=== PATIENT | male | born 1980 | race Two or more races ===

== ENCOUNTER 2020-08-15 10:59 | Emergency (ER) | payer OTHER ==
[~2020-08-15] VITALS: Ht 167.6 cm; Wt 113.4 kg
[2020-08-15 11:14] VITALS: BP 185/99
[2020-08-15 11:40] LABS: Basophils # (auto) 0.2 10 ^3/uL (0-0.2); Basophils % (auto) 1.3 % (0.0-2.0); Eosinophils # (auto) 0.2 10 ^3/uL (0-0.8); Eosinophils % (auto) 1.3 % (0.0-7.0); Hemoglobin 14.4 g/dL (13.5-17.5); Lymphocytes # (auto) 4.1 10 ^3/uL (0.4-5.4); Lymphocytes % (auto) 30.5 % (10.0-50.0); Mean Corpuscular Hemoglobin 29.3 pg (28.0-32.0); Mean Corpuscular Hgb Conc. 33.4 g/dL (32.0-36.0); Mean Corpuscular Volume 87.8 fL (80.0-100.0); Monocytes # (auto) 0.6 10 ^3/uL (0-1.3); Monocytes % (auto) 4.2 % (0.0-12.0); Neutrophils # (auto) 8.5 10 ^3/uL (1.6-8.6); Neutrophils % (auto) 62.7 % (37.0-80.0); Red Cell Distribution Width 13.7 % (11.8-14.3); White Blood Cell 13.5 10^3/uL (4.4-10.8)
[2020-08-15 12:12] LABS: BUN/Creatinine Ratio 15.8; Bilirubin, Total 0.2 mg/dL (0.2-1.0); Total Protein 8.7 g/dL (6.4-8.2)
[2020-08-15] MEDS ORDERED: methylPREDNISolone SOD SUCC 125 MG/2 ML VL IV ONE (12:30)
[2020-08-15] MEDS ORDERED: ACYCLOVIR 400 MG TAB PO ONE (12:30)
== END 2020-08-15 13:22 | disposition home or self-care (01) ==
LOC: ER 10:59
DX: G51.0 Bell's palsy (principal)
CPT/HCPCS: 36415; 70450; 70487; 80053; 83605; 85025; 87040; 96374; 99285; J2930

== ENCOUNTER 2024-05-20 13:23 | Inpatient (IN) | payer OTHER ==
[~2024-05-20] VITALS: Ht 165.1 cm; Wt 131.0 kg
--- NOTE | 2024-05-20 14:18 | ED.PDOC ---
History of Present Illness HPI Comments 44Y M with PMHx DM presents to ED for chief complaint hypoglycemia with body aches, weakness, and nausea. Pt is currently taking Glipizide for DM management. BS upon ED arrival is 56. Pt states he ate breakfast. Chief Complaint: Hypoglycemia Time Seen by MD: 13:55 Primary Care Provider: PAIGE Sullivan Notes: Nurses Notes, Medications, Allergies Allergies: Coded Allergies: NO KNOWN ALLERGIES (Unverified , 08/15/20) Information Source: Patient Mode of Arrival: Ambulatory Severity: Mild Timing: Hours Duration: Since onset Past Medical History PAST MEDICAL HISTORY: DM Surgical History: Denies all surgeries Family History Family History: Unknown Social History Smoker: Non-Smoker Alcohol: Denies ETOH Use Drugs: Denies Drug Use Lives In: Home Constitutional: reports: weakness, others (body aches); denies: chills, diaphoresis, fatigue, fever, malaise, sweats EENTM: denies: blurred vision, double vision, ear bleeding, ear discharge, ear drainage, ear pain, ear ringing, eye pain, eye redness, hearing loss, mouth pain, mouth swelling, nasal discharge, nose bleeding, nose congestion, nose pain, photophobia, tearing, throat pain, throat swelling, voice changes, others Respiratory: denies: cough, hemoptysis, orthopnea, SOB at rest, shortness of breath, SOB with excertion, stridor, wheezing, others Cardiovascular: denies: chest pain, dizzy spells, diaphoresis, Dyspnea on exertion, edema, irregular heart beat, left arm pain, lightheadedness, palpitations, PND, syncope, others Gastrointestinal: reports: nausea; denies: abdomen distended, abdominal pain, blood streaked bowels, constipated, diarrhea, dysphagia, difficulty swallowing, hematemesis, melena, poor appetite, poor fluid intake, rectal bleeding, rectal pain, vomiting, others Genitourinary: denies: burning, dysuria, flank pain, frequency, hematuria, incontinence, penile discharge, penile sore, pain, testicle pain, testicle swelling, urgency, others Neurological: denies: dizziness, fainting, headache, left sided numbness, left sided weakness, numbness, paresthesia, pre-existing deficit, right sided numbness, right sided weakness, seizure, speech problems, tingling, tremors, weakness, others Musculoskeletal: denies: back pain, gout, joint pain, joint swelling, muscle pain, muscle stiffness, neck pain, others Integumetry: denies: bruises, change in color, change in hair/nails, dryness, laceration, lesions, lumps, rash, wounds, others Allergic/Immunocompromised: denies: Difficulty Healing, Frequent Infections, Hives, Itching, others Hematologic/Lymphatic: denies: anemia, blood clots, easy bleeding, easy bruising, swollen glands, others Endocrine: reports: others (hypoglycemia); denies: excessive hunger, excessive sweating, excessive thirst, excessive urination, flushing, intolerance to cold, intolerance to heat, unexplained weight gain, unexplained weight loss Psychiatric: denies: anxiety, bipolar disorder, depression, hopeless, panic disorder, schizophrenia, sleepless, suicidal, others All Other Systems: Reviewed and Negative Physical Exam General Appearance: No Apparent Distress, Normal HEENT: Normal ENT Inspection, Pharynx Normal, TMs Normal Neck: Full Range of Motion, Non-Tender, Normal, Normal Inspection Respiratory: Chest Non-Tender, Lungs Clear, No Accessory Muscle Use, No Respiratory Distress, Normal Breath Sounds Cardiovascular: No Edema, No JVD, No Murmur, No Gallop, Normal Peripheral Pulses, Regular Rate/Rhythm Breast Exam: Deferred Gastrointestinal: No Organomegaly, Non Tender, No Pulsatile Mass, Normal Bowel Sounds, Soft Genitalia: Deferred Pelvic: Deferred Rectal: Deferred Extremities: No calf tenderness, Normal capillary refill, Normal inspection, Normal range of motion, Non-tender, No pedal edema Musculoskeletal : Apperance: Normal Neurologic: Alert, 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 Was a procedure done?: No Differential Dx Considerations may include: Hyperglycemia, sepsis, viral syndrome, electrolyte and are since our X-Ray, Labs, Meds, VS Vital Signs Date Time Temp Pulse Resp B/P (MAP) Pulse Ox O2 Delivery O2 Flow Rate FiO2 05/20/24 14:03 97.0 91 18 116/59 (78) 97 Lab Test 05/20/24 14:50 05/20/24 14:17 05/20/24 13:55 05/20/24 13:54 Range/Units POC Glucose 101 63 L 57 L 70-106 mg/dl White Blood Count 27.7 H 4.4-10.8 10^3/uL Red Blood Count 4.18 L 4.5-5.90 10^6/uL Hemoglobin 11.9 L 13.5-17.5 g/dL Hematocrit 37.1 L 41.0-53.0 % Mean Corpuscular Volume 88.8 80.0-100.0 fL Mean Corpuscular Hemoglobin 28.5 28.0-32.0 pg Mean Corpuscular Hemoglobin Concent 32.1 32.0-36.0 g/dL Red Cell Distribution Width 15.0 H 11.8-14.3 % Platelet Count 258 140-450 10^3/uL Mean Platelet Volume 9.6 6.9-10.8 fL Neutrophils (%) (Auto) 82.8 H 37.0-80.0 % Lymphocytes (%) (Auto) 9.6 L 10.0-50.0 % Monocytes (%) (Auto) 7.2 0.0-12.0 % Eosinophils (%) (Auto) 0.1 0.0-7.0 % Basophils (%) (Auto) 0.3 0.0-2.0 % Neutrophils # (Auto) 22.9 H 1.6-8.6 10 ^3/uL Lymphocytes # (Auto) 2.7 0.4-5.4 10 ^3/uL Monocytes # (Auto) 2.0 H 0-1.3 10 ^3/uL Eosinophils # (Auto) 0 0-0.8 10 ^3/uL Basophils # (Auto) 0.1 0-0.2 10 ^3/uL Nucleated Red Blood Cells 0.0 % Sodium Level 131 L 136-145 mmol/L Potassium Level 3.5 3.5-5.1 mmol/L Chloride Level 97 L 98-107 mmol/L Carbon Dioxide Level 27 20-31 mmol/L Anion Gap 7 5-15 Blood Urea Nitrogen 30 H 9-23 mg/dL Creatinine 1.65 H 0.700-1.30 mg/dL Glomerular Filtration Rate Calc 52 >90 mL/min BUN/Creatinine Ratio 18.2 10.0-20.0 Serum Glucose 64 L 74-106 mg/dL Calcium Level 8.7 8.7-10.4 mg/dL Test 05/20/24 13:45 05/20/24 13:42 Range/Units POC Glucose 48 *L 56 L 70-106 mg/dl Time of 1ST Reevaluation: 14:25 Reevaluation 1ST: Unchanged Patient Education/Counseling: Diagnosis, Treatment Family Education/Counseling: No Family Present Departure 1 Departure Time of Disposition: 17:03 ([place] Authorization [id number] with concern for sepsis, viral syndrome, electrolyte abnormality, metabolic disarray) Impression: Primary Impression: Hypoglycemia Additional Impression: Weakness Disposition: 09 ADMITTED INPATIENT Admit to: Med Surg Condition: Serious Critical Care Note Critical Care Time?: Yes Critical care comment: Recurrent hypoglycemia Authorized and Performed by: Mary Shaw MD Total critical care time: Approximately 34 minutes Due to a high probability of clinically significant, life threatening deterioration, the patient required my highest level of preparedness to intervene emergently and I personally spent this critical care time directly and personally managing the patient. This critical care time included obtaining a h istory; examining the patient; pulse oximetry; ordering and review of studies; arranging urgent treatment with development of a management plan; evaluation of patient's response to treatment; frequent reassessment; and, discussions with other providers. This critical care time was performed to assess and manage the high probability of imminent, life-threatening deterioration that could result in multi-organ failure. It was exclusive of separately billable procedures and treating other patients and teaching time. Please see my other sections and the rest of the note for further information on patient assessment and treatment. Stability Stability form required: No Heart Score Heart Score: Heart Score Response (Comments) Value History N/A 0 EKG N/A 0 Age N/A 0 Risk Factors N/A 0 Troponin N/A 0 Total 0 I personally scribed for MARY SHAW MD ([email or web address]) on 05/20/24 at 14:18. Electronically submitted by Elisabeth Junior ([email or web address]). MARY SHAW MD May 20, 2024 14:18
[2024-05-20 14:44] LABS: Basophils # (auto) 0.1 10 ^3/uL (0-0.2); Basophils % (auto) 0.3 % (0.0-2.0); Eosinophils # (auto) 0 10 ^3/uL (0-0.8); Eosinophils % (auto) 0.1 % (0.0-7.0); Hematocrit 37.1 % (41.0-53.0); Hemoglobin 11.9 g/dL (13.5-17.5); Lymphocytes # (auto) 2.7 10 ^3/uL (0.4-5.4); Lymphocytes % (auto) 9.6 % (10.0-50.0); Mean Corpuscular Hemoglobin 28.5 pg (28.0-32.0); Mean Corpuscular Hgb Conc. 32.1 g/dL (32.0-36.0); Mean Corpuscular Volume 88.8 fL (80.0-100.0); Monocytes % (auto) 7.2 % (0.0-12.0); Neutrophils # (auto) 22.9 10 ^3/uL (1.6-8.6); Neutrophils % (auto) 82.8 % (37.0-80.0); Platelet Count (auto) 258 10^3/uL (140-450); Red Blood Cells 4.18 10^6/uL (4.5-5.90); White Blood Cell 27.7 10^3/uL (4.4-10.8)
[2024-05-20 14:54] LABS: Anion Gap 7 (5-15); Calcium 8.7 mg/dL (8.7-10.4); Carbon Dioxide 27 mmol/L (20-31)
[2024-05-20 14:59] LABS: BUN/Creatinine Ratio 18.2 (10.0-20.0)
[2024-05-20 15:00] LABS: Blood Urea Nitrogen 30 mg/dL (9-23); Chloride 97 mmol/L (98-107); Glucose 64 mg/dL (74-106); Potassium 3.5 mmol/L (3.5-5.1); Sodium 131 mmol/L (136-145)
[2024-05-20] MEDS: ONDANSETRON HCL 4 MG/2 ML VIAL IV ONE (16:00)
[2024-05-20] MEDS ORDERED: CEFEPIME 2GM/50ML NS 50 ML IV ONE (16:00)
[2024-05-20] MEDS: D5W 5% 1,000 ML IV ONE (17:00)
[2024-05-20 17:20] VITALS: O2SAT 98
[2024-05-20 17:23] LABS: Albumin 3.6 g/dL (3.2-4.8); Anion Gap 9 (5-15); BUN/Creatinine Ratio 17.7 (10.0-20.0); Bilirubin, Total 1.1 mg/dL (0.2-1.0); Carbon Dioxide 26 mmol/L (20-31); Potassium 3.9 mmol/L (3.5-5.1); Total Protein 7.1 g/dL (5.7-8.2)
[2024-05-20 17:24] LABS: Alanine Aminotransferase 99 U/L (7-40); Alkaline Phosphatase 215 U/L (46-116); Aspartate Aminotransferase 86 U/L (13-40); Blood Urea Nitrogen 33 mg/dL (9-23); Calcium 8.6 mg/dL (8.7-10.4); Chloride 97 mmol/L (98-107); Glucose 73 mg/dL (74-106); Sodium 132 mmol/L (136-145)
[2024-05-20] MEDS: SODIUM CHLORIDE 0.9% 1,000 ML IV ONE (17:27)
[2024-05-20] MEDS ORDERED: MORPHINE SULFATE INJ 2 MG/ml SYRG IV PRN ×2 (17:45)
[2024-05-20] MEDS ORDERED: HYDROcodone-ACET 5/325MG TAB PO PRN (17:45)
[2024-05-20] MEDS ORDERED: ONDANSETRON HCL 4 MG/2 ML VIAL IV PRN (17:45)
[2024-05-20] MEDS ORDERED: NITROGLYCERIN 0.4 MG SL TAB SL PRN (17:45)
[2024-05-20] MEDS: AZITHROMYCIN 500MG/ 250ML 250 ML IV ONE (17:45)
[2024-05-20] MEDS ORDERED: DEXTROSE (50%) 50ML SYRG IV PRN (17:45)
[2024-05-20] MEDS ORDERED: LORazepam 0.5 MG TAB PO PRN (17:45)
[2024-05-20] MEDS ORDERED: cefTRIAXone 2GM/50ML D5W 50 ML IV SCH (17:45)
--- NOTE | 2024-05-20 17:47 | DVHHP2 ---
History of Present Illness Reason for Visit: GENERALIZED WEAKNESS History of Present Illness Patient is a 44 year-old M with a PMHx of DM2, HTN, and Obesity who presented to the hospital today complaining of generalized weakness, fevers, chills, for the past 4 days which has been worsening. Today patients who is an RN noticed patients blood sugars have been in the 50's and multiple juices boxes were given and patient become even more lethargic and nauseas. At that time patient presented to the ED for further workup and care. In the ED patient seemed lethargic, unable to complete full sentences. Smoke: No Review of Systems Constitutional: Yes: Fever, Chills, Sweats, Weakness, Malaise Eyes: No: Pain, Vision change, Conjunctivae inflammation, Eyelid inflammation, Other, Redness ENT: No: Ear pain, Ear discharge, Nose pain, Nose discharge, Nose congestion, Mouth pain, Mouth swelling, Throat pain, Throat swelling, Other Respiratory: Shortness of breath, SOB with excertion Cardiovascular: No: Chest Pain, Palpitations, Orthopnea, Paroxysmal Noc. Dyspnea, Edema, Lt Headedness, Other Gastrointestinal: No: Nausea, Vomiting, Abdominal Pain, Diarrhea, Constipation, Melena, Hematochezia, Other Genitourinary: No Dysuria, No Frequency, No Incontinence, No Hematuria, No Retention, No Other Musculoskeletal: No: other, neck pain, shoulder pain, arm pain, back pain, hand pain, leg pain, foot pain Skin: No: Rash, Lesions, Jaundice, Bruising, Other Neurological: Weakness; No: Numbness, Incoordination, Change in speech, Confusion, Seizures, Other Allergies: Coded Allergies: NO KNOWN ALLERGIES (Unverified , 08/15/20) Medications Current Medications Medications Dose Ordered Sig/[place] Route Start Time Stop Time Status Last Admin Dose Admin Sodium Chloride 1,000 ml @ 125 mls/hr Q8H IV 05/20/24 17:45 UNV Lorazepam 0.5 mg Q6HP PRN PO 05/20/24 17:45 UNV Acetaminophen/ Hydrocodone Bitart 1 tab Q4HP PRN PO 05/20/24 17:45 UNV Ondansetron HCl 4 mg Q4HP PRN IV 05/20/24 17:45 UNV Morphine Sulfate 2 mg Q4HPRN PRN IV 05/20/24 17:45 UNV Enoxaparin Sodium 40 mg DAILY SC 05/21/24 10:00 UNV Nitroglycerin 0.4 mg Q5MINP PRN SL 05/20/24 17:45 UNV Morphine Sulfate 2 mg Q30M PRN IV 05/20/24 17:45 UNV Diagnostic Test (Pha) 1 strip IQ4HR 05/20/24 20:00 UNV Insulin Human Regular IQ4HR SC 05/20/24 20:00 UNV Dextrose 50 ml UD PRN IV 05/20/24 17:45 UNV Exam Vital Signs Vital Signs Date Time Temp Pulse Resp B/P (MAP) Pulse Ox O2 Delivery O2 Flow Rate FiO2 05/20/24 14:03 97.0 91 18 116/59 (78) 97 General Appearance: Alert, Oriented X3, mild distress HEENT: Atraumatic, PERRLA, EOMI Respiratory: Other (wheezing) Cardiovascular: Other (Tachycardic ) Abdominal: Normal bowel sounds, Other (Obese) Extremities: No clubbing Psych/Mental Status: Mental status NL Labs/Xrays Labs Test 05/20/24 16:45 05/20/24 14:50 05/20/24 14:17 Range/Units Sodium Level 132 L 136-145 mmol/L Potassium Level 3.9 3.5-5.1 mmol/L Chloride Level 97 L 98-107 mmol/L Carbon Dioxide Level 26 20-31 mmol/L Anion Gap 9 5-15 Blood Urea Nitrogen 33 H 9-23 mg/dL Creatinine 1.86 H 0.700-1.30 mg/dL Glomerular Filtration Rate Calc 45 >90 mL/min BUN/Creatinine Ratio 17.7 10.0-20.0 Serum Glucose 73 L 74-106 mg/dL Calcium Level 8.6 L 8.7-10.4 mg/dL Total Bilirubin 1.1 H 0.2-1.0 mg/dL Aspartate Amino Transferase (AST) 86 H 13-40 U/L Alanine Aminotransferase (ALT) 99 H 7-40 U/L Alkaline Phosphatase 215 H 46-116 U/L Total Protein 7.1 5.7-8.2 g/dL Albumin 3.6 3.2-4.8 g/dL POC Glucose 101 70-106 mg/dl White Blood Count 27.7 H 4.4-10.8 10^3/uL Red Blood Count 4.18 L 4.5-5.90 10^6/uL Hemoglobin 11.9 L 13.5-17.5 g/dL Hematocrit 37.1 L 41.0-53.0 % Mean Corpuscular Volume 88.8 80.0-100.0 fL Mean Corpuscular Hemoglobin 28.5 28.0-32.0 pg Mean Corpuscular Hemoglobin Concent 32.1 32.0-36.0 g/dL Red Cell Distribution Width 15.0 H 11.8-14.3 % Platelet Count 258 140-450 10^3/uL Mean Platelet Volume 9.6 6.9-10.8 fL Neutrophils (%) (Auto) 82.8 H 37.0-80.0 % Lymphocytes (%) (Auto) 9.6 L 10.0-50.0 % Monocytes (%) (Auto) 7.2 0.0-12.0 % Eosinophils (%) (Auto) 0.1 0.0-7.0 % Basophils (%) (Auto) 0.3 0.0-2.0 % Neutrophils # (Auto) 22.9 H 1.6-8.6 10 ^3/uL Lymphocytes # (Auto) 2.7 0.4-5.4 10 ^3/uL Monocytes # (Auto) 2.0 H 0-1.3 10 ^3/uL Eosinophils # (Auto) 0 0-0.8 10 ^3/uL Basophils # (Auto) 0.1 0-0.2 10 ^3/uL Nucleated Red Blood Cells 0.0 % Assessment/Plan Assessment/Plan # SIRS - Unknown source - Check Influenza and COVID - CT Chest # DM2 with hyperglycemia - A1c - SSI # JESUS due to ATN?? 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 05/20/24 In Process 17:[address] [facility] 05/20/24 In Process Adm. 17:37 Consistent DIET 05/20/24 Transmitted Carb(Ccho)Diabetes Dinner Sodium Chloride 0.9% PHA 05/20/24 Logged 17:45 Lorazepam Tablet PHA 05/20/24 Logged (Ativan Tablet) 17:[address] Md Of Changes [facility] 05/20/24 In Process From Base 17:[address] [facility] 05/20/24 In Process 17:37 Ct Ab Pel Wo Con-No CT 05/20/24 Logged Oral Or Iv 17:37 Urinalysis LAB 05/20/24 Logged 17:37 Patient Condition ORDERS 05/20/24 Transmitted 17:[address] [facility] 05/20/24 In Process 17:37 Hydrocodone-Acet PHA 05/20/24 Logged 5/325mg Tab ([place] 17:45 Ondansetron Hcl PHA 05/20/24 Logged (Zofran) 17:[address] [facility] 05/20/24 In Process 17:37 Morphine Sulfate PHA 05/20/24 Logged Injection 17:45 Enoxaparin Sodium PHA 05/21/24 Logged (Lovenox) 10:00 Nitroglycerin [facility] 05/20/24 Logged Sublingual (Ntrostat 17:45 Morphine Sulfate PHA 05/20/24 Logged Injection 17:[address] Chest [facility] 05/20/24 In Process Pain 17:37 Notify Md Of Changes [facility] 05/20/24 In Process From Base 17:37 Protective Signal Superintendent For [facility] 05/20/24 In Process 24 Hours 17:[address] [facility] 05/20/24 In Process Protocol 17:[address] [facility] 05/20/24 In Process Every Shift 17:37 Oxygen By Nasal RT 05/20/24 Transmitted Cannula 17:37 Urine Sodium LAB 05/20/24 Logged 17:37 Urine Creatinine LAB 05/20/24 Logged 17:37 Osmolality Urine LAB 05/20/24 Logged 17:37 Urine LAB 05/20/24 Logged Protein/Creatinine Glucose Blood PHA 05/20/24 Logged (Accu-Chek Comfort 20:00 Insulin R (Human) PHA 05/20/24 Logged (Insulin R) 20:00 Dextrose 50% Syringe PHA 05/20/24 Logged 17:45 Communication Order ORDERS 05/20/24 Transmitted 17:37 Electrocardigram EKG 05/20/24 Logged 17:37 Troponin-I Hs LAB 05/20/24 Logged 17:37 Echo 2d Mode Cardiac US 05/20/24 Logged DOP 17:37 Rapid Influenza A&B LAB 05/20/24 Logged 17:37 Azithromycin 500mg/ PHA 05/20/24 Verified 250ml (Zithromax 50 17:45 Ceftriaxone Ivpb PHA 05/20/24 Verified Rocephin 17:45 Date of Service: May 20, 2024 Billing Provider: JENA COKER MD Common Visit Codes: 93088-[id number] INP/OBS CARE (HIGH) Secondary Visit Codes: 01794-[id number] CARE PLAN 30 MINUTES JENA COKER MD May 20, 2024 17:47
[2024-05-20] MEDS: SODIUM CHLORIDE 0.9% 1,000 ML IV SCH (18:18)
[2024-05-20 19:56] LABS: Rapid Influenza A Negative (Negative); Rapid Influenza B Negative (Negative)
[2024-05-20 20:00] VITALS: PULSE 84; RESP 18; O2SAT 93
[2024-05-20] MEDS: InsuLIN REG 1unit/0.01ml Soln (100units/ml) SC SCH (20:00)
[2024-05-20 20:32] LABS: Urine Bacteria None Seen /hpf (None Seen)
[2024-05-20] MEDS: ACCU-CHEK COMFORT CURVE STRIP VI SCH (20:53)
[2024-05-20 21:00] VITALS: BP 114/55; PULSE 84; RESP 20; TEMP 98.3; O2SAT 93
[2024-05-20 21:06] LABS: Protein, Urine 150.2 mg/dL (1-14)
[2024-05-20 21:08] LABS: Creatinine, Urine 49.23 mg/dL (30.0-125.0); Urine Protein/Creatinine Ratio 3.05
--- NOTE | 2024-05-20 21:09 | DVH ---
Exam: CT CT AB PEL WO CON-NO ORAL OR IV History: SEPSIS Comparison Study: None available at time of dictation. TECHNIQUE: Multidetector CT of the abdomen was performed from lung bases to pubic symphysis. Imaging was performed without IV contrast. Axial, coronal and sagittal multiplanar reformats were obtained fr om the axial data set by the technologist. Radiation Dose Information: CT Dose: CTDI volume is 25.07 mGy. Dose-length product is 1580.09 mGy*cm FINDINGS: Evaluation of solid organs is limited due to lack of intravenous contrast use. Findings: Lung Bases: No acute or significant lung base finding. Normal heart size. No pleural or pericardial effusion. Liver: The liver is normal in size. No focal lesions. Gallbladder and Biliary Tree: Unremarkable Spleen: Unremarkable Pancreas: The pancreas is grossly normal in appearance. Adrenal Glands: Unremarkable Kidneys: Kidneys are grossly normal without calculi or hydronephrosis. Bladder: Grossly unremarkable for degree of distention. Bowel: The stomach is grossly normal in appearance. Small bowel and colon are normal in caliber and d istribution. The appendix is not visualized; however, no secondary findings of acute appendicitis id entified. Ascites: Absent Lymphadenopathy: No mesenteric, retroperitoneal or periportal lymphadenopathy. Abdominal Wall and Mesentery: Unremarkable. Vasculature: The visualized abdominal aorta is normal in size and caliber. Evaluation of abdominal a nd pelvic vessels is limited due to lack of intravenous contrast. Pelvic Organs: Unremarkable Musculoskeletal: No aggressive focal bony lesions, acute fractures or dislocation. Soft tissues: Unremarkable IMPRESSION: 1. No acute abdominal or pelvic finding. Radiation optimization: All CT scans at this facility use at least one of these dose optimization sri hniques: automated exposure control mA and/or kV adjustment per patient size (includes targeted exam s where dose is matched to clinical indication) or iterative reconstruction.
[2024-05-20 21:11] LABS: Urine Blood 1+ /uL (Negative); Urine Clarity Clear (Clear); Urine Color Yellow (Yellow); Urine Protein, UAD 2+ (Negative); Urine Specific Gravity 1.008 (1.001-1.035); Urine Urobilinogen 4 mg/dL (Negative); Urine WBC 1 /hpf (0 - 3)
[2024-05-20 21:25] LABS: COVID19 ANTIGEN SOFIA FIA NEGATIVE (NEGATIVE)
[2024-05-20] MEDS ORDERED: metroNIDAZOLE 500MG/100ML 100 ML IV SCH (22:00)
[2024-05-20] MEDS: metroNIDAZOLE 500MG/100ML 100 ML IV SCH (22:18)
[2024-05-20] MEDS: D5W 5% 1,000 ML IV SCH (22:31)
[2024-05-20] MEDS: cefTRIAXone 2GM/50ML D5W 50 ML IV SCH (23:36)
[2024-05-21] VITALS (9 sets, daily range): BP systolic 106–131; BP diastolic 54–76; PULSE 64–84; RESP 16–20; TEMP 98–98.8; O2SAT 91–96
[2024-05-21] MEDS: AZITHROMYCIN 500MG/ 250ML 250 ML IV ONE (00:44)
--- NOTE | 2024-05-21 05:36 | DVH ---
EXAM: XY CHEST PORTABLE Indication: Shortness of breast Technique: Single frontal view of the chest was obtained Comparison: None FINDINGS: Lines and Tubes: None Lungs: Right upper lung consolidative opacity. Pleura: No effusion. No pneumothorax. Cardiomediastinal contours: Unremarkable Bones: No acute osseous abnormality. IMPRESSION: Right upper lung pneumonia. Recommend repeat imaging after the completion of treatment to ensure res olution.
[2024-05-21 10:56] LABS: Albumin 3.3 g/dL (3.2-4.8); Anion Gap 7 (5-15); BUN/Creatinine Ratio 22.5 (10.0-20.0); Basophils # (auto) 0.1 10 ^3/uL (0-0.2); Basophils % (auto) 0.6 % (0.0-2.0); Carbon Dioxide 26 mmol/L (20-31); Chloride 103 mmol/L (98-107); Cholesterol 117 mg/dL (< 200); Eosinophils # (auto) 0.1 10 ^3/uL (0-0.8); Eosinophils % (auto) 0.4 % (0.0-7.0); Hematocrit 33.9 % (41.0-53.0); Hemoglobin 11.1 g/dL (13.5-17.5); LDL Cholesterol 61 mg/dL (< 100); Lymphocytes # (auto) 2.6 10 ^3/uL (0.4-5.4); Lymphocytes % (auto) 14.3 % (10.0-50.0); Mean Corpuscular Hemoglobin 28.8 pg (28.0-32.0); Mean Corpuscular Hgb Conc. 32.7 g/dL (32.0-36.0); Mean Corpuscular Volume 88.2 fL (80.0-100.0); Monocytes # (auto) 1.2 10 ^3/uL (0-1.3); Monocytes % (auto) 6.8 % (0.0-12.0); Neutrophils % (auto) 77.9 % (37.0-80.0); Platelet Count (auto) 287 10^3/uL (140-450); Potassium 3.8 mmol/L (3.5-5.1); Red Blood Cells 3.84 10^6/uL (4.5-5.90); Red Cell Distribution Width 14.9 % (11.8-14.3); Sodium 136 mmol/L (136-145)
[2024-05-21 10:57] LABS: Bilirubin, Total 0.6 mg/dL (0.2-1.0); Total Protein 6.5 g/dL (5.7-8.2)
[2024-05-21 11:01] LABS: Alanine Aminotransferase 79 U/L (7-40); Alkaline Phosphatase 190 U/L (46-116); Aspartate Aminotransferase 52 U/L (13-40); Blood Urea Nitrogen 32 mg/dL (9-23); Calcium 8.2 mg/dL (8.7-10.4); Glucose 119 mg/dL (74-106); HDL Cholesterol 16 mg/dL (40-59); Triglycerides 193 mg/dL (< 150)
[2024-05-21 11:02] LABS: INR 1.16 (0.9-1.15); Partial Thromboplastin Time 30.7 SEC (24.5-34.5); Prothrombin Time 12.2 sec (9.3-11.8)
[2024-05-21] MEDS ORDERED: GLIP10TA9 PO (11:12)
[2024-05-21] MEDS ORDERED: LISI2.5T47 PO (11:12)
--- NOTE | 2024-05-21 11:22 | DVH ---
Procedure: CT CHEST WITHOUT CONTRAST Reason for study/Clinical History: PNA Comparison Study: None available at time of dictation. Exam Date: 05/21/2024 10:50 AM TECHNIQUE: Multidetector CT of the chest was performed from the lung apices to the upper abdomen with out the use of intravenous contract. Axial, coronal and sagittal multiplanar reformats were performed . Radiation Dose Information: CT Dose: CTDI volume is 31.15 mGy. Dose-length product is 1023.54 mGy*cm The dose indicators for CT are the volume Computed Tomography (CT) Dose Index (CTDIvol) and the Dose Length Product (DLP), and are measured in units of mGy and mGy-cm, respectively. These indicators are not patient dose, but values generated from the CT scanner acquisition factors. The report includes radiation exposure data for exposures received during this examination. FINDINGS: Lower neck: Normal thyroid. Lungs: Right upper lobe consolidation with air bronchograms. Heart/Vascular Structures: The heart is enlarged. No pericardial effusion. Lymph Nodes: Multiple mediastinal lymph nodes measuring up to 1.2 cm in short axis. Pleura: No pleural effusion or significant pneumothorax. Musculoskeletal: No acute osseous abnormality. Soft tissues: Normal. Upper abdomen: Limited portions of the upper abdomen are unremarkable. IMPRESSION: 1. Right upper lobe pneumonia. 2. Mediastinal lymphadenopathy, probably reactive. Radiation optimization: All CT scans at this facility use at least one of these dose optimization sri hniques: automated exposure control mA and/or kV adjustment per patient size (includes targeted exam s where dose is matched to clinical indication) or iterative reconstruction.
[2024-05-21] MEDS: LACTULOSE 20Gm/30ML SOLN PO ONE (11:45)
[2024-05-21] MEDS: ENOXAPARIN SOD 40 MG/0.4 ML SYRINGE SC SCH (11:48)
--- NOTE | 2024-05-21 11:51 | DVHPN2 ---
Subjective Seen and examined at bedside, still c/o shortness of breath. at bedside. Changes from previous H/P or p: No Changes Eyes: No Pain, No Vision change, No Conjunctivae inflammation, No Eyelid inflammation, No Other, No Redness ENT: No Ear pain, No Ear discharge, No Nose pain, No Nose discharge, No Nose congestion, No Mouth pain, No Mouth swelling, No Throat pain, No Throat swelling, No Other Cardiovascular: No Chest Pain, No Palpitations, No Orthopnea, No Paroxysmal Noc. Dyspnea, No Edema, No Lt Headedness, No Other Respiratory: Shortness of breath, SOB with excertion Gastrointestinal: No Nausea, No Vomiting, No Abdominal Pain, No Diarrhea, No Constipation, No Melena, No Hematochezia, No Other Genitourinary: No Dysuria, No Frequency, No Incontinence, No Hematuria, No Retention, No Other Musculoskeletal: No other, No neck pain, No shoulder pain, No arm pain, No back pain, No hand pain, No leg pain, No foot pain Skin: No Rash, No Lesions, No Jaundice, No Bruising, No Other Objective Vitals Vital Signs Date Time Temp Pulse Resp B/P (MAP) Pulse Ox O2 Delivery O2 Flow Rate FiO2 05/21/24 10:02 98.0 79 16 106/54 (71) 93 98.0 05/21/24 07:44 Room Air* 0 21 Intake/Output Intake and Output 05/21/24 07:00 Intake Total 250 ml Balance 250 ml Intake Oral 100 ml IV Total 150 ml # Voids 1 Exam Gen: in bed NAD Cvs: N S1/S2, RRR Resp: Wheezing 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 Medications Current Medications Medications Dose Ordered Sig/Hesham Route Start Time Stop Time Status Last Admin Dose Admin Sodium Chloride 1,000 ml @ 125 mls/hr Q8H IV 05/20/24 17:45 05/21/24 09:48 125 MLS/HR Lorazepam 0.5 mg Q6HP PRN PO 05/20/24 17:45 Acetaminophen/ Hydrocodone Bitart 1 tab Q4HP PRN PO 05/20/24 17:45 Ondansetron HCl 4 mg Q4HP PRN IV 05/20/24 17:45 Morphine Sulfate 2 mg Q4HPRN PRN IV 05/20/24 17:45 Enoxaparin Sodium 40 mg DAILY SC 05/21/24 10:00 05/21/24 11:48 40 MG Nitroglycerin 0.4 mg Q5MINP PRN SL 05/20/24 17:45 Morphine Sulfate 2 mg Q30M PRN IV 05/20/24 17:45 Diagnostic Test (Pha) 1 strip IQ4HR 05/20/24 20:00 05/21/24 08:40 1 STRIP Insulin Human Regular IQ4HR SC 05/20/24 20:00 Dextrose 50 ml UD PRN IV 05/20/24 17:45 Dextrose 1,000 ml @ 75 mls/hr [id number] IV 05/20/24 22:00 05/21/24 11:37 75 MLS/HR Ceftriaxone Sodium/Dextrose 50 ml @ 50 mls/hr DAILY@2230 IV 05/20/24 22:30 05/20/24 23:36 50 MLS/HR Metronidazole 100 ml @ 100 mls/hr Q8H IV 05/20/24 23:00 05/21/24 06:03 100 MLS/HR Doxycycline Monohydrate 100 mg Q12HR PO 05/21/24 22:00 UNV Laboratory Results Laboratory Tests 05/21/24 10:21 Chemistry Test 05/20/24 14:17 05/20/24 16:45 05/21/24 10:21 Calcium Level 8.7 mg/dL (8.7-10.4) 8.6 mg/dL (8.7-10.4) L 8.2 mg/dL (8.7-10.4) L Albumin 3.6 g/dL (3.2-4.8) 3.3 g/dL (3.2-4.8) Total Protein 7.1 g/dL (5.7-8.2) 6.5 g/dL (5.7-8.2) Coagulation Test 05/21/24 10:21 Prothrombin Time 12.2 sec (9.3-11.8) H Prothrombin Time INR 1.16 (0.9-1.15) H Activated Partial Thromboplast Time 30.7 SEC (24.5-34.5) Lipid panel Test 05/20/24 18:20 05/21/24 10:21 Lipase 60 U/L (12-53) H Cholesterol Level 117 mg/dL (< 200) HDL Cholesterol 16 mg/dL (40-59) L Triglycerides Level 193 mg/dL (< 150) H LFT Test 05/20/24 16:45 05/21/24 10:21 Alanine Aminotransferase (ALT) 99 U/L (7-40) H 79 U/L (7-40) H Alkaline Phosphatase 215 U/L (46-116) H 190 U/L (46-116) H Aspartate Amino Transferase (AST) 86 U/L (13-40) H 52 U/L (13-40) H Total Bilirubin 1.1 mg/dL (0.2-1.0) H 0.6 mg/dL (0.2-1.0) Urinalysis Test 05/20/24 20:10 Urine Color Yellow (Yellow) Urine Clarity Clear (Clear) Urine pH 6.0 (5.0-9.0) Urine Specific [place] 1.008 (1.001-1.035) Urine Protein 2+ (Negative) H Urine Ketones Negative (Negative) Urine Blood 1+ /uL (Negative) H Urine Nitrite Negative (Negative) Urine Bilirubin Negative (Negative) Urine Urobilinogen 4 mg/dL (Negative) H Urine Leukocyte Esterase Negative /uL (Negative) Urine RBC 2 /hpf (0 - 3) Urine WBC 1 /hpf (0 - 3) Urine Squamous Epithelial Cells Few /hpf (<5) Urine Bacteria None seen /hpf (None Seen) Urine Osmolality 239 mOsm/kg Urine Creatinine 49.23 mg/dL (30.0-125.0) Urine Protein/Creatinine Ratio 3.05 Urine Sodium 29 mmol/L (40-220) L Urine Glucose Normal mg/dL (Normal) Urine Total Protein 150.2 mg/dL (1-14) H Assessment/Plan Assessment/Plan # Probable Sepsis - R Upper Lobe PNA - CT Chest noted - Cont Abx - Bronchodilators # DM2 with hyperglycemia - A1c - SSI # JESUS due to ATN?? 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 17:37 Sodium Chloride 0.9% PHA 05/20/24 In Process 17:45 Lorazepam Tablet PHA 05/20/24 In Process (Ativan Tablet) 17:45 Notify Of Changes [facility] 05/20/24 In Process From Base 17:37 Advance Directive MILI 05/20/24 In Process 17:37 Ct Ab Pel Wo Con-No CT 05/20/24 Resulted Oral Or Iv 17:37 Patient Condition ORDERS 05/20/24 Transmitted 17:37 Allergies MILI 05/20/24 In Process 17:37 Hydrocodone-Acet PHA 05/20/24 In Process 5/325mg Tab ([place] 17:45 Ondansetron Hcl PHA 05/20/24 In Process (Zofran) 17:45 Morphine Sulfate PHA 05/20/24 In Process Injection 17:45 Enoxaparin Sodium PHA 05/21/24 In Process (Lovenox) 10:00 Nitroglycerin PHA 05/20/24 In Process Sublingual (Ntrostat 17:45 Morphine Sulfate PHA 05/20/24 In Process Injection 17:45 Stat Ekg For Chest MILI 05/20/24 In Process Pain 17:37 Notify Of Changes [facility] 05/20/24 In Process From Base 17:37 Lead Portfolio Manager For [facility] 05/20/24 In Process 24 Hours 17:37 Emergency Dysrhythmia MILI 05/20/24 In Process Protocol 17:37 Rhythm Strips Once [facility] 05/20/24 In Process Every Shift 17:37 Oxygen By Nasal RT 05/20/24 Transmitted Cannula 17:37 Glucose Blood PHA 05/20/24 In Process (Accu-Chek Comfort 20:00 Insulin R (Human) PHA 05/20/24 In Process (Insulin R) 20:00 Dextrose 50% Syringe PHA 05/20/24 In Process 17:45 Communication Order ORDERS 05/20/24 Transmitted 17:37 Electrocardigram EKG 05/20/24 Logged 17:37 Npo (Nothing By DIET 05/21/24 Transmitted Mouth) Diet Breakfast D5w 5% (Dextrose 5%) PHA 05/20/24 In Process 22:00 Ceftriaxone 2gm/50ml PHA 05/20/24 In Process D5w (Rocephin 2gm/5 22:30 Metronidazole PHA 05/20/24 In Process 500mg/100ml (Flagyl 23:00 Chest Portable XY 05/21/24 Resulted 04:[address] 05/21/24 Resulted 10:08 Mrcp Mri MRI 05/21/24 Logged 11:32 Hemoglobin A1c LAB 05/21/24 Logged 11:45 Vitamin D, 25-Hydroxy LAB 05/21/24 Logged 11:45 Doxycycline Tablet PHA 05/21/24 Logged (Vibramycin Tablet) 11:45 Doxycycline Tablet PHA 05/21/24 Logged (Vibramycin Tablet) 22:00 Lactulose Oral PHA 05/21/24 Logged 11:45 Complete Blood Count LAB 05/22/24 Verified 04:00 Magnesium LAB 05/22/24 Verified 04:00 Comprehensive LAB 05/22/24 Verified Metabolic Panel 04:00 Incentive Spirometry ORDERS 05/21/24 Verified Q 1hr 11:48 Date of Service: May 21, 2024 Billing Provider: JENA COKER MD Common Visit Codes: [id number] INP/OBS CARE(HIGH) JENA COKER MD May 21, 2024 11:51
[2024-05-21] MEDS: DOXYCYCLINE 100 MG TAB/CAP PO ONE (13:26)
--- NOTE | 2024-05-21 13:59 | DVH ---
CLINICAL INFORMATION: Abdominal pain. TECHNIQUE: Heavily T2-weighted MRCP images were obtained. 3D MRCP images were created. COMPARISON: CT of the abdomen and pelvis dated 05/20/2024. FINDINGS: Liver is enlarged, measuring up to 19 cm in craniocaudal dimension at approximately the mid clavicular line. No focal liver lesions identified on noncontrast enhanced images. No gallstones vis ualized in the gallbladder. No biliary ductal dilatation. Common bile duct measures 4 mm in diameter, within normal limits. No filling defect or stricture identified in the common bile duct. Pancreatic duct appears unremarkable. The spleen, pancreas, adrenal glands, and kidneys appear grossly unremarka ble limited images obtained. No other abnormality identified. IMPRESSION: 1. No biliary ductal dilatation. No filling defect or stricture identified in the common bile duct on MRCP images. 2. Hepatomegaly.
--- NOTE | 2024-05-21 14:27 | DVHSR ---
APPROVED REPORT EXAM: Two-dimensional and M-mode echocardiogram with Doppler and color Doppler. Blood Pressure: 122/74 mmHg INDICATION SOB RISK FACTORS Obesity: Height: 5'5", Weight: 289 DIMENSIONS LVDd5.3 (3.8-5.7cm)LA (2D)3.9 (1.9-4.0cm)Aortic Root3.6 (2.0-3.7cm) LVDs3.8 (2.5-4.0cm)LA (MM) (1.9-4.0cm)Aortic Cusp Exc2.0 (1.5-2.0cm) EF (%) 55.0 (55-70%)Rt. Atrium3.9 (1.9-4.0cm)Asc. Aorta cm IVSd1.3 (0.7-1.1cm)RV (D) (1.8-2.4cm) PWd1.3 (0.7-1.1cm) Mitral Valve MitralMitral Stenosis E wave0.90m/sMV Mean GR.mmHg A wave0.73m/sMV Peak GR.mmHg E/A ratio1.22D MVAcm2 DECEL [id number] 1/2 [place] Aortic Valve Aortic ValveAortic Stenosis V10.75m/Nicholas Mean GR.3mmHg V21.18m/Nicholas Peak GR.6mmHg LVOT Diameter2.4 (1.8-2.4cm)Doppler AVA2.87cm2 Pulmonic Valve V21.01m/s Tricuspid Valve TR Velocity3.13m/s [id number] Other Information Quality : LimitedRhythm : Technically limited study due to body habitus. Conclusion Technically difficult study. Difficult acoustic windows. Sinus rhythm. Concentric LVH. Valves appear to be structurally normal. EF of 65% with normal RV function. Mild tricuspid regurgitation. No pericardial effusion masses or vegetations.
[2024-05-21] MEDS: DOXYCYCLINE 100 MG TAB/CAP PO SCH (21:16)
[2024-05-22 05:00] VITALS: BP 153/87; PULSE 79; RESP 21; TEMP 97.5; O2SAT 95
[2024-05-22 06:17] LABS: Hematocrit 34.1 % (41.0-53.0); Hemoglobin 11.3 g/dL (13.5-17.5); Mean Corpuscular Hemoglobin 29.2 pg (28.0-32.0); Mean Corpuscular Volume 88.6 fL (80.0-100.0); Platelet Count (auto) 289 10^3/uL (140-450); Red Blood Cells 3.85 10^6/uL (4.5-5.90); White Blood Cell 12.7 10^3/uL (4.4-10.8)
[2024-05-22 06:46] LABS: Albumin 3.3 g/dL (3.2-4.8); Anion Gap 8 (5-15); BUN/Creatinine Ratio 23.7 (10.0-20.0); Bilirubin, Total 0.4 mg/dL (0.2-1.0); Carbon Dioxide 25 mmol/L (20-31); Chloride 104 mmol/L (98-107); Sodium 137 mmol/L (136-145); Total Protein 6.6 g/dL (5.7-8.2)
[2024-05-22 06:49] LABS: Alanine Aminotransferase 75 U/L (7-40); Alkaline Phosphatase 223 U/L (46-116); Aspartate Aminotransferase 47 U/L (13-40); Band Neutrophils % (manual) 0; Basophils % (manual) 0 (0.0-2.0); Blast Cells 0; Blood Urea Nitrogen 27 mg/dL (9-23); Calcium 8.4 mg/dL (8.7-10.4); Glucose 153 mg/dL (74-106); Metamyelocytes % 0; Myelocytes % 0; Promyelocytes % 0; Reactive Lymphocytes 0
[2024-05-22 08:00] VITALS: PULSE 74; PULSE 77; RESP 14; O2SAT 96
[2024-05-22 08:31] LABS: Eosinophils % (manual) 1 (0-7); Lymphocytes % (manual) 19 (10.0-50.0); Monocytes % (manual) 9 (0-12); Platelet Estimate Adequate; Smudge Cells 2 /100 WBC
[2024-05-22 09:00] VITALS: BP 118/85; PULSE 77; RESP 14; TEMP 97.8; O2SAT 96
[2024-05-22] MEDS ORDERED: ERGO1CAP23 PO (10:24)
[2024-05-22] MEDS ORDERED: EMPA1TAB3 PO (10:24)
[2024-05-22] MEDS ORDERED: DOX100T PO (10:24)
[2024-05-22] MEDS ORDERED: ALBUAER3 IN (10:24)
[2024-05-22] MEDS ORDERED: CEPH250C PO (10:24)
[2024-05-22] MEDS ORDERED: GLIP10TA9 PO (10:29)
[2024-05-22] MEDS ORDERED: LISI-710 PO (10:29)
[2024-05-22] MEDS ORDERED: ASPI1TAB20 PO (10:29)
--- NOTE | 2024-05-22 10:49 | DVHDS2 ---
Discharge Summary Date of Admission May 20, 2024 at 17:37 Date of Discharge: May 22, 2024 Admitting Diagnosis Sepsis Labs/Diagnostic Data: Laboratory Results Test 05/22/24 08:06 05/22/24 04:52 05/21/24 10:21 05/20/24 20:30 POC Glucose 135 mg/dl (70-106) White Blood Count 12.7 10^3/uL (4.4-10.8) Red Blood Count 3.85 10^6/uL (4.5-5.90) Hemoglobin 11.3 g/dL (13.5-17.5) Hematocrit 34.1 % (41.0-53.0) Mean Corpuscular Volume 88.6 fL (80.0-100.0) Mean Corpuscular Hemoglobin 29.2 pg (28.0-32.0) Mean Corpuscular Hemoglobin Concent 33.0 g/dL (32.0-36.0) Red Cell Distribution Width 15.0 % (11.8-14.3) Platelet Count 289 10^3/uL (140-450) Mean Platelet Volume 9.3 fL (6.9-10.8) Neutrophils (%) (Auto) % (37.0-80.0) Lymphocytes (%) (Auto) % (10.0-50.0) Monocytes (%) (Auto) % (0.0-12.0) Basophils (%) (Auto) % (0.0-2.0) Neutrophils # (Auto) 10 ^3/uL (1.6-8.6) Lymphocytes # (Auto) 10 ^3/uL (0.4-5.4) Monocytes # (Auto) 10 ^3/uL (0-1.3) Differential Total Cells Counted 100.0 (100) Neutrophils % (Manual) 71 (37.0-80.0) Band Neutrophils % (Manual) 0 Lymphocytes % (Manual) 19 (10.0-50.0) Monocytes % (Manual) 9 (0-12) Eosinophils % (Manual) 1 (0-7) Basophils % (Manual) 0 (0.0-2.0) Metamyelocytes % (manual) 0 Myelocytes % (Manual) 0 Promyelocytes % (Manual) 0 Blast Cells % (Manual) 0 Reactive Lymphocytes 0 Smudge Cells 2 /100 WBC Platelet Estimate Adequate Sodium Level 137 mmol/L (136-145) Potassium Level 4.0 mmol/L (3.5-5.1) Chloride Level 104 mmol/L (98-107) Carbon Dioxide Level 25 mmol/L (20-31) Anion Gap 8 (5-15) Blood Urea Nitrogen 27 mg/dL (9-23) Creatinine 1.14 mg/dL (0.700-1.30) Glomerular Filtration Rate Calc 81 mL/min (>90) BUN/Creatinine Ratio 23.7 (10.0-20.0) Serum Glucose 153 mg/dL (74-106) Calcium Level 8.4 mg/dL (8.7-10.4) Magnesium Level 2.0 mg/dL (1.6-2.6) Total Bilirubin 0.4 mg/dL (0.2-1.0) Aspartate Amino Transferase (AST) 47 U/L (13-40) Alanine Aminotransferase (ALT) 75 U/L (7-40) Alkaline Phosphatase 223 U/L (46-116) Total Protein 6.6 g/dL (5.7-8.2) Albumin 3.3 g/dL (3.2-4.8) Eosinophils (%) (Auto) 0.4 % (0.0-7.0) Eosinophils # (Auto) 0.1 10 ^3/uL (0-0.8) Basophils # (Auto) 0.1 10 ^3/uL (0-0.2) Nucleated Red Blood Cells 0.0 % Prothrombin Time 12.2 sec (9.3-11.8) Prothrombin Time INR 1.16 (0.9-1.15) Activated Partial Thromboplast Time 30.7 SEC (24.5-34.5) Hemoglobin A1c 9.5 % A1C (<5.7) Triglycerides Level 193 mg/dL (< 150) Cholesterol Level 117 mg/dL (< 200) LDL Cholesterol 61 mg/dL (< 100) HDL Cholesterol 16 mg/dL (40-59) Vitamin D 25-Hydroxy 8.3 ng/mL (30.0-100) SARS-CoV-2 Antigen (Rapid) Negative (NEGATIVE) Test 05/20/24 20:10 05/20/24 19:32 05/20/24 18:20 05/20/24 16:45 Urine Color Yellow (Yellow) Urine Clarity Clear (Clear) Urine pH 6.0 (5.0-9.0) Urine Specific [place] 1.008 (1.001-1.035) Urine Protein 2+ (Negative) Urine Ketones Negative (Negative) Urine Blood 1+ /uL (Negative) Urine Nitrite Negative (Negative) Urine Bilirubin Negative (Negative) Urine Urobilinogen 4 mg/dL (Negative) Urine Leukocyte Esterase Negative /uL (Negative) Urine RBC 2 /hpf (0 - 3) Urine WBC 1 /hpf (0 - 3) Urine Squamous Epithelial Cells Few /hpf (<5) Urine Bacteria None seen /hpf (None Seen) Urine Osmolality 239 mOsm/kg Urine Creatinine 49.23 mg/dL (30.0-125.0) Urine Protein/Creatinine Ratio 3.05 Urine Sodium 29 mmol/L (40-220) Urine Glucose Normal mg/dL (Normal) Urine Total Protein 150.2 mg/dL (1-14) Lactic Acid Level 0.9 mmol/L (0.4-2.0) Lipase 60 U/L (12-53) Influenza Type A Antigen Negative (Negative) Influenza Type B Antigen Negative (Negative) Troponin I High Sensitivity 3 ng/L (</=54) Beta-Hydroxybutyric Acid 0.083 mmol/L (< 0.4) Other Laboratory Tests 05/22/24 04:52 Brief Hx & Hospital Course: Patient is a 44 year-old M with a PMHx of DM2, HTN, and Obesity who presented to the hospital today complaining of generalized weakness, fevers, chills, for the past 4 days which has been worsening. Today patients who is an RN noticed patients blood sugars have been in the 50's and multiple juices boxes were given and patient become even more lethargic and nauseas. Patient was found to have pneumonia per CT Chest. Patient is improving, wishes to be discharged home. Needs repeat labs in 5 days and repeat imaging. Started on Jardiance for better glycemic control. Patient counseled on possible side effects of Jardiance (UTI and Fungal infections) Operations or Procedures Procedure: CT CHEST WITHOUT CONTRAST Reason for study/Clinical History: PNA Comparison Study: None available at time of dictation. Exam Date: 05/21/2024 10:50 AM TECHNIQUE: Multidetector CT of the chest was performed from the lung apices to the upper abdomen without the use of intravenous contract. Axial, coronal and sagittal multiplanar reformats were performed. Radiation Dose Information: CT Dose: CTDI volume is 31.15 mGy. Dose-length product is 1023.54 mGy*cm The dose indicators for CT are the volume Computed Tomography (CT) Dose Index (CTDIvol) and the Dose Length Product (DLP), and are measured in units of mGy and mGy-cm, respectively. These indicators are not patient dose, but values generated from the CT scanner acquisition factors. The report includes radiation exposure data for exposures received during this examination. FINDINGS: Lower neck: Normal thyroid. Lungs: Right upper lobe consolidation with air bronchograms. Heart/Vascular Structures: The heart is enlarged. No pericardial effusion. Lymph Nodes: Multiple mediastinal lymph nodes measuring up to 1.2 cm in short axis. Pleura: No pleural effusion or significant pneumothorax. Musculoskeletal: No acute osseous abnormality. Soft tissues: Normal. Upper abdomen: Limited portions of the upper abdomen are unremarkable. IMPRESSION: 1. Right upper lobe pneumonia. 2. Mediastinal lymphadenopathy, probably reactive. Condition at Discharge: Stable Final Diagnosis/Problems List # Probable Sepsis - R Upper Lobe PNA - CT Chest noted - Cont Abx - Bronchodilators # DM2 with hyperglycemia - A1c 9.5 # Vitamin D Def- Supplement # JESUS due to ATN?? 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 Patient was counseled about treatment plan, medications, possible side effects, patientverbalized understanding. All questions were answered to the best of my ability. This discharge took greater then 30 minutes in planning, reviewing documentation, counseling the patient, and discussing with other team members." ASSESSMENT ASSESSMENT Assessment Date of Service: May 22, 2024 Billing Provider: JENA COKER MD Common Visit Codes: 33237-TBX/OBS DISCH DAY >30min JENA COKER MD May 22, 2024 10:49
== END 2024-05-22 11:32 | disposition home or self-care (01) | DRG 871 ==
LOC: ER 13:23 → TELE-WESTW 17:37
PROVIDERS: ADMIT Internal Medicine; ATTEND Internal Medicine
DX: A41.9 Sepsis, unspecified organism (principal); J18.9 Pneumonia, unspecified organism; N17.0 Acute kidney failure with tubular necrosis; Z68.42 Body mass index [BMI] 45.0-49.9, adult; E11.65 Type 2 diabetes mellitus with hyperglycemia; E66.01 Morbid (severe) obesity due to excess calories; R74.01 Elevation of levels of liver transaminase levels; E55.9 Vitamin D deficiency, unspecified; Z20.822 Contact with and (suspected) exposure to COVID-19; I10 Essential (primary) hypertension
CPT/HCPCS: 36415; 71045; 71250; 74176; 74181; 80048; 80053; 80061; 81001; 82010; 82306; 82570; 82962; 83036; 83605; 83690; 83735; 83935; 84156; 84300; 84484; 85007; 85025; 85027; 85610; 85730; 87040; 87426; 87804; 93306; 99291; G0378; J1815; J3490